=== PATIENT | female | born 1960 | race Hispanic/Latino ===

== ENCOUNTER 2017-12-21 08:20 | Outpatient (CLI) | payer OTHER | END 2017-12-21 08:21 | disposition home or self-care (01) | LOC: BICMRI 08:20 | PROVIDERS: ATTEND Family Medicine | DX: K76.0 Fatty (change of) liver, not elsewhere classified (principal); R11.0 Nausea; Z90.49 Acquired absence of other specified parts of digestive tract; Z90.710 Acquired absence of both cervix and uterus | CPT/HCPCS: 74181 ==

== ENCOUNTER 2019-01-01 09:28 | Outpatient (CLI) | payer OTHER | END 2019-01-01 09:29 | disposition home or self-care (01) | LOC: SCSMAMMO 09:28 | PROVIDERS: ATTEND Family Medicine | DX: Z12.31 Encounter for screening mammogram for malignant neoplasm of breast (principal) | CPT/HCPCS: 77067 ==

== ENCOUNTER 2022-02-27 08:20 | Inpatient (IN) | payer OTHER ==
[2022-02-27] MEDS ORDERED: Pantoprazole 40 MG VIAL ONE (08:40)
[2022-02-27] MEDS ORDERED: Acetaminophen 500 MG TAB ONE (08:40)
[2022-02-27 09:00] LABS: #Eosinphils 0.1 thou/uL (0.0-0.7); #Lymphocytes 1.4 thou/uL (1.20-3.40); #Monocytes 0.4 thou/uL (0.11-0.59); #Neutrophils 3.2 thou/uL (1.40-6.50); %Basophils 0.5 % (0.0-1.0); %Eosinophils 2.3 % (0.0-10.0); %Lymphocytes 27.5 % (21.0-51.0); %Neutrophils 62.8 % (42.0-75.0); Mean Corpuscular HGB CONC 34.4 g/dL (32.0-36.0); Mean Corpuscular Hemoglobin 32.3 pg (27.0-31.0); Mean Platelet Volume 7.3 fL (7.4-10.4); Platelet Count 204 thou/uL (130-400); RBC Distribution Width 12.4 % (11.5-14.5); Red Blood Cell (RBC) Count 4.32 mill/uL (4.20-5.40); White Blood Cell (WBC) Count 5.1 thou/uL (4.8-10.8)
[2022-02-27 09:18] LABS: ALT (SGPT) 63 U/L (8-55); AST (SGOT) 44 U/L (5-34); Albumin 3.9 g/dL (3.5-5.0); Alkaline Phosphatase 65 U/L (40-110); Anion Gap 14 mmol/L (10-20); BUN (Urea Nitrogen) 13 mg/dL (9.8-20.1); Bilirubin, Total 2.1 mg/dL (0.2-1.2); Calc. Creatinine Clearance 0 mL/min (70-130); Calcium 9.1 mg/dL (7.8-10.44); Carbon Dioxide 24 mmol/L (22-29); Chloride 105 mmol/L (98-107); Estimated GFR 90; Globulin 2.7 g/dL (2.4-3.5); Glucose 115 mg/dL (70-105); Potassium 3.3 mmol/L (3.5-5.1); Protein, Total 6.6 g/dL (6.0-8.3); Sodium 140 mmol/L (136-145)
[2022-02-27] MEDS ORDERED: Ibuprofen 200 MG TAB ONE (11:39)
[2022-02-27 11:57] LABS: Troponin I 0.017 ng/mL (< 0.028)
[2022-02-27] MEDS ORDERED: Nitroglycerin 0.4 MG TAB (25 Tab Bottle) SL PRN (12:12)
[2022-02-27] MEDS ORDERED: Ondansetron PF 4 MG/2 ML Vial IVP PRN (12:12)
[2022-02-27] MEDS ORDERED: Dextrose 50% Abboject 50 ML SYRINGE SLOW IVP PRN (12:14)
[2022-02-27] MEDS ORDERED: HumaLOG 300 UNITS/3 ML VIAL SC PRN (12:14)
[2022-02-27] MEDS ORDERED: Dextrose 5% in Water 1,000 ML IV PRN (12:14)
[2022-02-27 13:58] VITALS: BMI 31.5
[2022-02-27 15:20] LABS: Troponin I 0.031 ng/mL (< 0.028)
[2022-02-27] MEDS ORDERED: Mag-Al 1200 mg/1200 mg/30 ML UDCUP PO PRN (17:16)
[2022-02-27] MEDS ORDERED: Morphine 2 MG/ML VIAL SLOW IVP PRN (17:17)
[2022-02-27] MEDS: Atorvastatin Calcium 40 MG TAB PO SCH (21:11)
[2022-02-28 04:56] LABS: #Eosinphils 0.2 thou/uL (0.0-0.7); #Lymphocytes 2.1 thou/uL (1.20-3.40); #Monocytes 0.4 thou/uL (0.11-0.59); #Neutrophils 3.5 thou/uL (1.40-6.50); %Basophils 0.4 % (0.0-1.0); %Eosinophils 2.9 % (0.0-10.0); %Lymphocytes 33.5 % (21.0-51.0); %Monocytes 6.1 % (0.0-10.0); %Neutrophils 57.1 % (42.0-75.0); Hemoglobin 13.9 g/dL (12.0-16.0); Mean Corpuscular Hemoglobin 31.8 pg (27.0-31.0); Mean Corpuscular Volume 93.7 fL (78.0-98.0); Mean Platelet Volume 7.3 fL (7.4-10.4); Platelet Count 207 thou/uL (130-400); RBC Distribution Width 12.4 % (11.5-14.5); Red Blood Cell (RBC) Count 4.36 mill/uL (4.20-5.40); White Blood Cell (WBC) Count 6.2 thou/uL (4.8-10.8)
[2022-02-28 05:17] LABS: Anion Gap 13 mmol/L (10-20); BUN (Urea Nitrogen) 12 mg/dL (9.8-20.1); Calc. Creatinine Clearance 84 mL/min (70-130); Calcium 9.1 mg/dL (7.8-10.44); Carbon Dioxide 26 mmol/L (22-29); Chloride 104 mmol/L (98-107); Estimated GFR 78; Glucose 110 mg/dL (70-105); Potassium 3.6 mmol/L (3.5-5.1); Sodium 139 mmol/L (136-145)
[2022-02-28] MEDS ORDERED: Aspirin 325 mg Enteric Coated Tablet PO SCH (09:00)
[2022-02-28] MEDS ORDERED: Electrolyte Replacement Protocol 1 EACH FS SCH (09:00)
[2022-02-28] MEDS ORDERED: Electrolyte Replacement Protocol FS PRN (09:30)
[2022-02-28] MEDS ORDERED: ADENOSINE 60 MG/20 ML VIAL ONE (09:32)
[2022-02-28 09:37] LABS: Magnesium 1.9 mg/dL (1.6-2.6)
[2022-02-28] MEDS: Atenolol 50 MG TAB PO SCH (11:42)
[2022-02-28] MEDS: Enoxaparin Sodium 40 MG/0.4 ML SYRINGE SC SCH ×2 (11:42→12:28)
[2022-02-28] MEDS: Lisinopril 5 MG TAB PO SCH (11:43)
[2022-02-28] MEDS: Aspirin 81 mg Enteric Coated Tablet PO SCH (11:43)
[2022-02-28] MEDS: metFORMIN 500 MG TAB PO SCH ×2 (11:43→17:38)
[2022-02-28] MEDS ORDERED: Magnesium 2 GM/50 ML(in water) 2 GM in Premix Bag 1 BAG IVPB SCH (11:45)
[2022-02-28] MEDS: Atorvastatin Calcium 40 MG TAB PO SCH (21:36)
[2022-03-01] MEDS: Lisinopril 5 MG TAB PO SCH (08:08)
[2022-03-01] MEDS: Atenolol 50 MG TAB PO SCH (08:09)
[2022-03-01] MEDS: Aspirin 81 mg Enteric Coated Tablet PO SCH (08:09)
[2022-03-01] MEDS: Clopidogrel Bisulfate 75 MG TAB PO SCH (08:09)
[2022-03-01] MEDS: Enoxaparin Sodium 40 MG/0.4 ML SYRINGE SC SCH (08:09)
[2022-03-01] MEDS: metFORMIN 500 MG TAB PO SCH ×2 (08:09→21:02)
[2022-03-01] MEDS ORDERED: Midazolam HCl 2 mg/2 ml Vial ONE ×2 (11:19→14:47)
[2022-03-01] MEDS ORDERED: fentaNYL Citrate/PF 100 MCG/2 ML SYRINGE ONE ×3 (11:19→16:53)
[2022-03-01] MEDS ORDERED: Ketamine 50 MG/ML (10ML VIAL) ONE (11:19)
[2022-03-01] MEDS ORDERED: Propofol 500 MG/50 ML VIAL ONE ×4 (11:20→15:17)
[2022-03-01] MEDS ORDERED: Heparin 10,000 UNITS/ 10 ML VIAL ONE (11:21)
[2022-03-01] MEDS ORDERED: Phenylephrine 10 MG/ML VIAL ONE ×2 (11:26→13:44)
[2022-03-01] MEDS ORDERED: Lidocaine 1% PF 5 ML VIAL ONE ×2 (11:32→14:07)
[2022-03-01] MEDS ORDERED: Isoproterenol 0.2 MG/1 ML AMP ONE (14:26)
[2022-03-01] MEDS ORDERED: Promethazine HCl 25 MG/ML VIAL IM PRN (16:25)
[2022-03-01] MEDS ORDERED: Promethazine HCl 25 MG/ML VIAL IVPB PRN (16:25)
[2022-03-01] MEDS ORDERED: Ondansetron HCl/PF 4 MG/2 ML Vial IVP PRN (16:25)
[2022-03-01] MEDS: Atorvastatin Calcium 40 MG TAB PO SCH (21:02)
[2022-03-02] MEDS: Atenolol 50 MG TAB PO SCH (09:15)
[2022-03-02] MEDS: Lisinopril 5 MG TAB PO SCH (09:15)
[2022-03-02] MEDS: Clopidogrel Bisulfate 75 MG TAB PO SCH (09:15)
[2022-03-02] MEDS: metFORMIN 500 MG TAB PO SCH (09:15)
[2022-03-02] MEDS: Aspirin 81 mg Enteric Coated Tablet PO SCH (09:15)
[2022-03-02] MEDS ORDERED: cefTRIAXone\\ROCEPHIN 2 GM in Sodium Chloride 0.9% 100 ML IVPB SCH (11:00)
[2022-03-02 12:34] VITALS: TEMP 97.4
[2022-03-02 14:49] VITALS: BP 128/80
== END 2022-03-02 14:41 | disposition home or self-care (01) | DRG 274 ==
LOC: ERS 08:20 → EEVIPCON 11:05 → ERHOLD 11:05 → NEURO 13:03 → OBSVTOIN 02-28 12:51 → 2NO 03-01 20:17
PROVIDERS: ADMIT Internal Medicine; ATTEND Internal Medicine
PROC: 02583ZZ Destruction of Conduction Mechanism, Percutaneous Approach (ICD-10-PCS; principal; 2022-03-01)
PROC: 02K83ZZ Map Conduction Mechanism, Percutaneous Approach (ICD-10-PCS; 2022-03-01)
PROC: 4A023FZ Measurement of Cardiac Rhythm, Percutaneous Approach (ICD-10-PCS; 2022-03-01)
PROC: 4A0234Z Measurement of Cardiac Electrical Activity, Percutaneous Approach (ICD-10-PCS; 2022-03-01)
DX: I47.1 Supraventricular tachycardia (principal); G45.9 Transient cerebral ischemic attack, unspecified; G81.94 Hemiplegia, unspecified affecting left nondominant side; Z20.822 Contact with and (suspected) exposure to COVID-19; K21.9 Gastro-esophageal reflux disease without esophagitis; F45.9 Somatoform disorder, unspecified; H52.00 Hypermetropia, unspecified eye; H52.209 Unspecified astigmatism, unspecified eye; J30.9 Allergic rhinitis, unspecified; M62.838 Other muscle spasm; F32.A Depression, unspecified; I12.9 Hypertensive chronic kidney disease with stage 1 through stage 4 chronic kidney disease, or unspecified chronic kidney disease; E11.22 Type 2 diabetes mellitus with diabetic chronic kidney disease; N18.30 Chronic kidney disease, stage 3 unspecified; E66.9 Obesity, unspecified; G93.89 Other specified disorders of brain; E78.1 Pure hyperglyceridemia; G43.909 Migraine, unspecified, not intractable, without status migrainosus; Z90.49 Acquired absence of other specified parts of digestive tract; Z88.0 Allergy status to penicillin; Z90.710 Acquired absence of both cervix and uterus; Z82.49 Family history of ischemic heart disease and other diseases of the circulatory system; Z79.82 Long term (current) use of aspirin; Z79.84 Long term (current) use of oral hypoglycemic drugs; Z79.899 Other long term (current) drug therapy; Z68.32 Body mass index [BMI] 32.0-32.9, adult
CPT/HCPCS: 36415; 36416; 70551; 71045; 78452; 80048; 80053; 83735; 84484; 85025; 93005; 93017; 93306; 93613; 93620; 93621; 93623; 93653; 93655; 93880; 94760; 95712; 95819; 95957; 96374; A9500; C1730; C1732; C1760; C1769; C9113; J0153; J0696; J1644; J1650; J2250; J2270; J2370; J2405; J2704; J3475; J3490; U0003; U0005

== ENCOUNTER 2022-05-18 13:46 | Emergency (ER) | payer OTHER ==
[2022-05-18 15:09] LABS: #Eosinphils 0.1 thou/uL (0.0-0.7); #Lymphocytes 2.3 thou/uL (1.20-3.40); #Monocytes 0.5 thou/uL (0.11-0.59); #Neutrophils 3.8 thou/uL (1.40-6.50); %Basophils 0.4 % (0.0-1.0); %Eosinophils 1.6 % (0.0-10.0); %Lymphocytes 34.1 % (21.0-51.0); %Monocytes 7.7 % (0.0-10.0); %Neutrophils 56.2 % (42.0-75.0); Hemoglobin 14.7 g/dL (12.0-16.0); Mean Corpuscular HGB CONC 33.9 g/dL (32.0-36.0); Mean Corpuscular Hemoglobin 31.8 pg (27.0-31.0); Mean Corpuscular Volume 93.7 fl (78.0-98.0); Mean Platelet Volume 6.8 fL (7.4-10.4); Platelet Count 317 thou/uL (130-400); RBC Distribution Width 12.4 % (11.5-14.5); Red Blood Cell (RBC) Count 4.61 mill/uL (4.20-5.40); White Blood Cell (WBC) Count 6.7 thou/uL (4.8-10.8)
[2022-05-18 15:32] LABS: Bilirubin Negative (Negative); Blood, Urine Negative (Negative); Clarity Clear (Clear); Glucose, Urine (Dipstick) Normal (Negative); Ketone, Urine Negative (Negative); Leukocyte Negative Leu/uL (Negative); Nitrite Negative (Negative); Protein, Urine (Dipstick) Negative (Neg-Trace); Specific Gravity, Urine 1.005 (1.002-1.036); Urobilinogen Normal mg/dL (Less than 2); pH, Urine 7.5 (5.0-9.0)
[2022-05-18 15:35] LABS: ALT (SGPT) 36 U/L (8-55); AST (SGOT) 23 U/L (5-34); Albumin 4.3 g/dL (3.4-4.8); Alkaline Phosphatase 69 U/L (40-110); Anion Gap 13 mmol/L (10-20); BUN (Urea Nitrogen) 11 mg/dL (9.8-20.1); Bilirubin, Total 1.6 mg/dL (0.2-1.2); Calc. Creatinine Clearance 0 mL/min (70-130); Calcium 10.2 mg/dL (7.8-10.44); Carbon Dioxide 25 mmol/L (23-31); Chloride 106 mmol/L (98-107); Estimated GFR 79; Globulin 2.8 g/dL (2.4-3.5); Glucose 105 mg/dL (80-115); Protein, Total 7.1 g/dL (5.8-8.1); Sodium 140 mmol/L (136-145)
== END 2022-05-18 15:59 | disposition home or self-care (01) ==
LOC: EEVIPCON 13:46 → ERS 13:46
DX: R94.5 Abnormal results of liver function studies (principal); I10 Essential (primary) hypertension; K21.9 Gastro-esophageal reflux disease without esophagitis; E78.5 Hyperlipidemia, unspecified; E66.9 Obesity, unspecified; E11.9 Type 2 diabetes mellitus without complications; Z79.82 Long term (current) use of aspirin; Z79.84 Long term (current) use of oral hypoglycemic drugs; Z79.899 Other long term (current) drug therapy
CPT/HCPCS: 36415; 80053; 81003; 84484; 85025; 93005